=== PATIENT | male | born 1960 | race Two or more races ===

== ENCOUNTER 2024-08-20 16:52 | Outpatient (CLI) | payer OTHER | END 2024-08-20 17:20 | disposition home or self-care (01) | LOC: LAB 16:52 | PROVIDERS: ATTEND Urology | DX: R97.20 Elevated prostate specific antigen [PSA] (principal) ==

== ENCOUNTER 2024-10-01 16:05 | Outpatient (CLI) | payer OTHER | END 2024-10-01 16:13 | disposition home or self-care (01) | LOC: LAB 16:05 | PROVIDERS: ATTEND General Practice | DX: C61 Malignant neoplasm of prostate (principal); R97.20 Elevated prostate specific antigen [PSA] ==

== ENCOUNTER 2025-01-10 09:57 | Outpatient (CLI) | payer OTHER | END 2025-01-10 10:00 | disposition home or self-care (01) | LOC: LAB 09:57 | PROVIDERS: ATTEND Urology | DX: R97.20 Elevated prostate specific antigen [PSA] (principal); C61 Malignant neoplasm of prostate; K61.1 Rectal abscess ==